=== PATIENT | male | born 1960 | race Caucasian/White ===

== ENCOUNTER 2017-01-22 14:17 | Observation (INO) | payer MEDICARE ==
[~2017-01-22] VITALS: Ht 180.3 cm; Wt 97.3 kg
[2017-01-22 15:21] LABS: HEMOGLOBIN 10.5 gm/dl (14.0-17.5); RED BLOOD COUNT 3.85 M/UL (4.20-5.50); WHITE BLOOD COUNT 10.8 K/UL (4.5-11.0)
[2017-01-22 15:47] LABS: BUN/CREATININE RATIO 14 (0-10)
[2017-01-23] MEDS ORDERED: COMBIVENT0.074 GM/I INH (02:27)
[2017-01-23] MEDS ORDERED: ASPIR 8181 MG PO (02:28)
[2017-01-23] MEDS ORDERED: COREG 12.5MG12.5 MG PO (02:29)
[2017-01-23] MEDS ORDERED: PEPCID20 MG PO (02:30)
[2017-01-23] MEDS ORDERED: LISINOPRIL40 MG PO (02:31)
[2017-01-23] MEDS ORDERED: PRAVASTATIN SOD40 MG PO (02:31)
[2017-01-23] MEDS ORDERED: BRILINTA90 MG PO (02:32)
[2017-01-23] MEDS ORDERED: JANUMET 50-5001 EACH PO (02:33)
[2017-01-23] MEDS ORDERED: APIDRA100 UNIT/1 SQ (02:35)
[2017-01-23] MEDS ORDERED: TRADJENTA5 MG PO (02:36)
[2017-01-23] MEDS ORDERED: CUBICIN 500 MG500 MG IV (02:37)
[2017-01-23 03:03] LABS: HEMOGLOBIN 10.2 gm/dl (14.0-17.5); RED BLOOD COUNT 3.74 M/UL (4.20-5.50)
[2017-01-23 03:19] LABS: BUN/CREATININE RATIO 11 (0-10)
[2017-01-23] MEDS ORDERED: NITROSTAT 0.40.4 MG SL (14:34)
== END 2017-01-23 16:08 | disposition home or self-care (01) ==
LOC: ER1 14:17 → ZEROF 18:30 → M/S 20:16
PROVIDERS: Emergency Medicine; ADMIT Emergency Medicine
DX: R07.9 Chest pain, unspecified (principal); J15.212 Pneumonia due to Methicillin resistant Staphylococcus aureus; A41.9 Sepsis, unspecified organism; R79.89 Other specified abnormal findings of blood chemistry; M86.9 Osteomyelitis, unspecified; I73.9 Peripheral vascular disease, unspecified; I25.10 Atherosclerotic heart disease of native coronary artery without angina pectoris; E11.9 Type 2 diabetes mellitus without complications; I10 Essential (primary) hypertension; E78.5 Hyperlipidemia, unspecified; D64.9 Anemia, unspecified; I65.29 Occlusion and stenosis of unspecified carotid artery; M11.20 Other chondrocalcinosis, unspecified site; Z79.82 Long term (current) use of aspirin; Z79.891 Long term (current) use of opiate analgesic; Z79.899 Other long term (current) drug therapy; Z88.1 Allergy status to other antibiotic agents; Z87.891 Personal history of nicotine dependence
CPT/HCPCS: ECHO; 36415; 71010; 80053; 80061; 82550; 82553; 82607; 82728; 82746; 82962; 83036; 83540; 83735; 83874; 84439; 84443; 84466; 84484; 85025; 85045; 85379; 93005; 93306; 93880; 96372; 96374; 99285; G0378; J0878; J1650; J7030; J7050; Q9963

== ENCOUNTER 2017-01-26 17:57 | Inpatient (IN) | payer MEDICARE, MEDICAID ==
[~2017-01-26] VITALS: Ht 180.3 cm; Wt 95.3 kg
[~2017-01-26 17:57] MED LIST: APIDRA100 UNIT/1 SQ; ASPIR 8181 MG PO; BRILINTA90 MG PO; COMBIVENT0.074 GM/I INH; COREG 12.5MG12.5 MG PO; CUBICIN 500 MG500 MG IV; JANUMET 50-5001 EACH PO; LISINOPRIL40 MG PO; NITROSTAT 0.40.4 MG SL; PEPCID20 MG PO; PRAVASTATIN SOD40 MG PO; TRADJENTA5 MG PO
[2017-01-26 18:40] LABS: HEMOGLOBIN 8.8 gm/dl (14.0-17.5); RED BLOOD COUNT 3.29 M/UL (4.20-5.50); WHITE BLOOD COUNT 17.1 K/UL (4.5-11.0)
[2017-01-26 23:42] LABS: HEMOGLOBIN 8.9 gm/dl (14.0-17.5)
[2017-01-27 07:14] LABS: RED BLOOD COUNT 2.95 M/UL (4.20-5.50); WHITE BLOOD COUNT 12.1 K/UL (4.5-11.0)
[2017-01-27 08:50] LABS: BUN/CREATININE RATIO 22 (0-10)
[2017-01-27 13:17] LABS: HEMOGLOBIN 8.4 gm/dl (14.0-17.5)
[2017-01-27 13:33] LABS: BUN/CREATININE RATIO 21 (0-10)
== END 2017-01-27 14:05 | DRG 315 ==
LOC: ER1 17:57 → ZEROF 22:30 → CCU 22:30
PROVIDERS: Emergency Medicine; Internal Medicine; ADMIT Internal Medicine
DX: I30.9 Acute pericarditis, unspecified (principal); E87.1 Hypo-osmolality and hyponatremia; N17.9 Acute kidney failure, unspecified; I25.10 Atherosclerotic heart disease of native coronary artery without angina pectoris; I10 Essential (primary) hypertension; Z95.5 Presence of coronary angioplasty implant and graft; Z87.891 Personal history of nicotine dependence; I73.9 Peripheral vascular disease, unspecified; E11.9 Type 2 diabetes mellitus without complications; Z79.4 Long term (current) use of insulin; D64.9 Anemia, unspecified; Z88.1 Allergy status to other antibiotic agents; M11.20 Other chondrocalcinosis, unspecified site; E78.5 Hyperlipidemia, unspecified
CPT/HCPCS: ECHO; 36415; 36600; 70450; 71010; 80048; 80053; 80061; 81001; 82009; 82272; 82550; 82553; 82607; 82728; 82746; 82803; 82962; 83036; 83540; 83605; 83735; 83874; 83880; 84439; 84443; 84466; 84484; 85014; 85018; 85025; 85027; 85045; 85379; 85610; 85730; 86140; 87040; 87086; 93005; 93306; 93880; 96365; 96372; 96374; 99285; 99291; G0378; J0878; J1650; J2543; J7030; J7050; Q9963